=== PATIENT | male | born 1975 | race American Indian/Alaskan Native ===

== ENCOUNTER 2018-01-18 08:42 | Emergency (ER) | payer OTHER ==
[2018-01-18 09:11] VITALS: BP 143/69
[2018-01-18] MEDS ORDERED: MOTRIN PO ONE (09:35)
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
== END 2018-01-18 11:08 | disposition home or self-care (01) ==
LOC: ED 08:42
DX: S39.012A Strain of muscle, fascia and tendon of lower back, initial encounter (principal); S86.911A Strain of unspecified muscle(s) and tendon(s) at lower leg level, right leg, initial encounter; V49.49XA Driver injured in collision with other motor vehicles in traffic accident, initial encounter; Y93.89 Activity, other specified; Y92.89 Other specified places as the place of occurrence of the external cause; Y99.8 Other external cause status
CPT/HCPCS: 72100; 99283